=== PATIENT | male | born 1980 | race African-American/Black ===

== ENCOUNTER 2020-05-08 11:24 | Inpatient (IN) ==
[2020-05-08 13:35] LABS: Basophils % 0.5 % (0.0-0.8); Eosinophils # 0.3 10*3/uL (0.0-0.87); Eosinophils % 5.1 % (0.00-10.9); Hematocrit 40.5 VOL% (42.0-52.0); Hemoglobin 13.1 GM/DL (14.0-18.0); Immature Granulocytes % 0.4 %; Immature Granulocytes Absolute 0.02 #; Lymphocytes # 1.1 10*3/uL (1.4-4.0); Lymphocytes % 19.1 % (21.2-54.2); Mean Corpuscular HGB Conc 32.3 GM/DL (32-36); Mean Corpuscular Volume 81.8 FL (87-102); Mean Platelet Volume 9.9 FL (9.6-12.0); Monocytes % 7.2 % (1.7-12.7); Neutrophils % 67.7 % (38.7-73.9); Platelet Count 293 T/CUMM (130-400); Red Blood Count 4.95 MC/CUMM (3.8-5.5); White Blood Count 5.7 T/CUMM (4-12)
[2020-05-08 13:52] LABS: Blood, Urine Negative (Negative); Glucose,Urine (UA) Negative (Negative); Ketones,Urine Negative (Negative); Mucus,Urine Occasional /LPF (Occasional); Nitrite,Urine Negative (Negative); Protein,Urine Negative; RBC,Urine 2 /HPF (0-4); Squamous Epithelial Cell,Urine Occasional /HPF (0-10); Urine Appearance CLEAR (Clear); Urine Color Amber (Yellow); Urine Specific Gravity 1.023 (1.001-1.035); WBC,Urine 16 /HPF (0-6)
[2020-05-08 13:53] LABS: Bilirubin,Urine Moderate mg/dL (Negative)
[2020-05-08 14:16] LABS: Albumin 3.2 G/DL (3.4-5.0); Calcium 9.4 MG/DL (8.5-10.1); Osmolality,Calculated 276.5 MOS/KG (273-304); Total Protein 7.7 G/DL (6.4-8.3)
[2020-05-08] MEDS ORDERED: SODIUM CHLORIDE 0.9% 1,000 ML IV STA ×2 (14:26→15:16)
[2020-05-08 15:53] LABS: HIV Antigen/Antibody Result Nonreactive (Nonreactive); Hepatitis B Core IgM Quant 0.19 Index; Hepatitis B Surface Ag Quant < 0.10 Index; Hepatitis B Surface Ag Result Negative (Negative); Hepatitis C Virus Ab Quant 0.08 Index; Hepatitis C Virus Ab Result Negative (Negative)
[2020-05-08 16:00] LABS: Barbiturates Screen,Urine Negative (Negative); Benzodiazepines Screen,Urine Negative (Negative); Cannabinoid Screen,Urine Negative (Negative); Opiate Screen,Urine Negative (Negative); Phencyclidine Screen,Urine Negative (Negative)
[2020-05-08] MEDS ORDERED: GLUCAGON 1 MG VIAL IM PRN (16:34)
[2020-05-08] MEDS ORDERED: DEXTROSE 50% 25 GM/50 ML VIAL IV PRN (16:34)
[2020-05-08] MEDS ORDERED: MORPHINE 4 MG/1 ML VIAL IV PRN (17:11)
[2020-05-08] MEDS: SODIUM CHLORIDE 0.9% 1,000 ML IV SCH ×2 (19:30→19:50)
[2020-05-08] MEDS ORDERED: INFLUENZA VIRUS VACCINE 0.5 ML SYRINGE IM ONE (20:03)
[2020-05-09] MEDS: SODIUM CHLORIDE 0.9% 1,000 ML IV SCH ×6 (00:55→20:40)
[2020-05-09 06:05] LABS: Basophils % 0.6 % (0.0-0.8); Eosinophils # 0.3 10*3/uL (0.0-0.87); Eosinophils % 7.1 % (0.00-10.9); Hematocrit 35.9 VOL% (42.0-52.0); Hemoglobin 11.8 GM/DL (14.0-18.0); Immature Granulocytes % 0.4 %; Immature Granulocytes Absolute 0.02 #; Lymphocytes # 1.1 10*3/uL (1.4-4.0); Lymphocytes % 22.9 % (21.2-54.2); Mean Corpuscular HGB Conc 32.9 GM/DL (32-36); Mean Corpuscular Volume 79.6 FL (87-102); Monocytes % 8.6 % (1.7-12.7); Neutrophils % 60.4 % (38.7-73.9); Platelet Count 252 T/CUMM (130-400); Red Blood Count 4.51 MC/CUMM (3.8-5.5); White Blood Count 4.8 T/CUMM (4-12)
[2020-05-09 06:33] LABS: Albumin 2.5 G/DL (3.4-5.0); Bilirubin,Total 8.2 MG/DL (0.2-1.0); Calcium 8.7 MG/DL (8.5-10.1); Osmolality,Calculated 279.1 MOS/KG (273-304); Total Protein 6.1 G/DL (6.4-8.3)
[2020-05-09] MEDS: PANTOPRAZOLE 40 MG VIAL IV SCH (08:18)
[2020-05-09 11:41] LABS: Basophils % 0.5 % (0.0-0.8); Eosinophils # 0.3 10*3/uL (0.0-0.87); Eosinophils % 4.4 % (0.00-10.9); Hematocrit 35.8 VOL% (42.0-52.0); Hemoglobin 11.9 GM/DL (14.0-18.0); Immature Granulocytes % 0.5 %; Immature Granulocytes Absolute 0.03 #; Lymphocytes # 0.9 10*3/uL (1.4-4.0); Lymphocytes % 15.5 % (21.2-54.2); Mean Corpuscular HGB Conc 33.2 GM/DL (32-36); Mean Corpuscular Volume 80.8 FL (87-102); Mean Platelet Volume 10.4 FL (9.6-12.0); Monocytes % 6.2 % (1.7-12.7); Neutrophils % 72.9 % (38.7-73.9); Platelet Count 251 T/CUMM (130-400); Red Blood Count 4.43 MC/CUMM (3.8-5.5); Red Cell Distribution Width 16.8 % (9.3-17.3); White Blood Count 5.7 T/CUMM (4-12)
[2020-05-09 12:28] LABS: Albumin 2.4 G/DL (3.4-5.0); Bilirubin,Total 8.9 MG/DL (0.2-1.0); Calcium 8.4 MG/DL (8.5-10.1); Osmolality,Calculated 282.1 MOS/KG (273-304)
[2020-05-10] MEDS: SODIUM CHLORIDE 0.9% 1,000 ML IV SCH ×7 (00:40→21:20)
[2020-05-10 05:57] LABS: Basophils % 0.6 % (0.0-0.8); Eosinophils # 0.3 10*3/uL (0.0-0.87); Eosinophils % 6.6 % (0.00-10.9); Hematocrit 36.2 VOL% (42.0-52.0); Hemoglobin 11.8 GM/DL (14.0-18.0); Immature Granulocytes % 0.6 %; Immature Granulocytes Absolute 0.03 #; Lymphocytes # 1.2 10*3/uL (1.4-4.0); Lymphocytes % 25.1 % (21.2-54.2); Mean Corpuscular HGB Conc 32.6 GM/DL (32-36); Mean Corpuscular Volume 80.1 FL (87-102); Mean Platelet Volume 11.2 FL (9.6-12.0); Neutrophils % 58.1 % (38.7-73.9); Platelet Count 245 T/CUMM (130-400); Red Blood Count 4.52 MC/CUMM (3.8-5.5); Red Cell Distribution Width 16.8 % (9.3-17.3); White Blood Count 4.9 T/CUMM (4-12)
[2020-05-10 06:17] LABS: Albumin 2.2 G/DL (3.4-5.0); Calcium 8.6 MG/DL (8.5-10.1); Total Protein 5.8 G/DL (6.4-8.3)
[2020-05-10] MEDS: PANTOPRAZOLE 40 MG VIAL IV SCH (10:58)
[2020-05-11] MEDS: SODIUM CHLORIDE 0.9% 1,000 ML IV SCH ×7 (00:20→20:22)
[2020-05-11 06:04] LABS: Basophils % 0.4 % (0.0-0.8); Eosinophils # 0.2 10*3/uL (0.0-0.87); Eosinophils % 3.7 % (0.00-10.9); Hematocrit 35.3 VOL% (42.0-52.0); Hemoglobin 11.6 GM/DL (14.0-18.0); Immature Granulocytes % 0.4 %; Immature Granulocytes Absolute 0.02 #; Lymphocytes # 1.1 10*3/uL (1.4-4.0); Lymphocytes % 20.8 % (21.2-54.2); Mean Corpuscular HGB Conc 32.9 GM/DL (32-36); Mean Corpuscular Volume 79.7 FL (87-102); Mean Platelet Volume 11.1 FL (9.6-12.0); Monocytes % 10.1 % (1.7-12.7); Neutrophils % 64.6 % (38.7-73.9); Platelet Count 264 T/CUMM (130-400); Red Blood Count 4.43 MC/CUMM (3.8-5.5); Red Cell Distribution Width 16.6 % (9.3-17.3); White Blood Count 5.1 T/CUMM (4-12)
[2020-05-11 06:36] LABS: Albumin 2.3 G/DL (3.4-5.0); Bilirubin,Total 10.1 MG/DL (0.2-1.0); Osmolality,Calculated 280.1 MOS/KG (273-304); Total Protein 5.9 G/DL (6.4-8.3)
[2020-05-11 06:43] LABS: Albumin 2.3 G/DL (3.4-5.0); Bilirubin,Direct 8.08 MG/DL (0.0-0.20); Bilirubin,Indirect 2.5 MG/DL (0.0-1.0); Bilirubin,Total 10.6 MG/DL (0.2-1.0); Total Protein 5.9 G/DL (6.4-8.3)
[2020-05-11 08:38] LABS: INR 1.2; PT Patient Result 12.6 SECS (9.8-11.9)
[2020-05-11] MEDS ORDERED: INDOMETHACIN SUPP 50 MG SUPP RECTAL ONE (09:00)
[2020-05-11] MEDS: PANTOPRAZOLE 40 MG VIAL IV SCH (09:09)
[2020-05-11] MEDS: LACTATED RINGERS 1,000 ML IV SCH (10:23)
[2020-05-11] MEDS ORDERED: cefTRIAXone 1,000 MG in SYRINGE 1 EACH IV ONE ×2 (10:25→10:28)
[2020-05-11] MEDS ORDERED: fentaNYL 100 MCG/2 ML VIAL ONE (10:50)
[2020-05-11] MEDS ORDERED: MIDAZOLAM 2 MG/2 ML VIAL ONE (10:51)
[2020-05-11] MEDS ORDERED: propofoL 200 MG/20 ML VIAL IV ONE (11:40)
[2020-05-11] MEDS ORDERED: ROCURONIUM 50 MG/5 ML VIAL IV ONE (11:40)
[2020-05-11] MEDS ORDERED: ONDANSETRON 4 MG/2 ML VIAL ONE (11:40)
[2020-05-11] MEDS ORDERED: LIDOCAINE 2% 5 ML VIAL ONE (11:40)
[2020-05-11] MEDS ORDERED: SUCCINYLCHOLINE 200 MG/10 ML VIAL ONE (11:40)
[2020-05-12] MEDS: SODIUM CHLORIDE 0.9% 1,000 ML IV SCH ×4 (03:46→12:43)
[2020-05-12] MEDS: LACTATED RINGERS 1,000 ML IV SCH (07:00)
[2020-05-12 07:54] LABS: Basophils % 0.4 % (0.0-0.8); Eosinophils # 0.2 10*3/uL (0.0-0.87); Eosinophils % 5.3 % (0.00-10.9); Hematocrit 34.4 VOL% (42.0-52.0); Hemoglobin 11.4 GM/DL (14.0-18.0); Immature Granulocytes % 0.4 %; Immature Granulocytes Absolute 0.02 #; Lymphocytes # 1.1 10*3/uL (1.4-4.0); Lymphocytes % 23.3 % (21.2-54.2); Mean Corpuscular HGB Conc 33.1 GM/DL (32-36); Mean Corpuscular Volume 78.9 FL (87-102); Mean Platelet Volume 10.9 FL (9.6-12.0); Monocytes % 9.6 % (1.7-12.7); Platelet Count 248 T/CUMM (130-400); Red Blood Count 4.36 MC/CUMM (3.8-5.5); Red Cell Distribution Width 16.7 % (9.3-17.3); White Blood Count 4.5 T/CUMM (4-12)
[2020-05-12 08:41] LABS: Albumin 2.4 G/DL (3.4-5.0); Bilirubin,Direct 6.54 MG/DL (0.0-0.20); Bilirubin,Indirect 1.5 MG/DL (0.0-1.0); Total Protein 5.9 G/DL (6.4-8.3)
[2020-05-12 08:50] LABS: Albumin 2.4 G/DL (3.4-5.0); Bilirubin,Total 8.1 MG/DL (0.2-1.0); Calcium 8.9 MG/DL (8.5-10.1); Total Protein 5.9 G/DL (6.4-8.3)
[2020-05-12] MEDS: PANTOPRAZOLE 40 MG VIAL IV SCH (08:50)
[2020-05-12] MEDS ORDERED: cefTRIAXone 1,000 MG in SYRINGE 1 EACH IV SCH (09:00)
[2020-05-12 11:25] VITALS: BP 130/84
== END 2020-05-12 13:13 | disposition home or self-care (01) | DRG 439 ==
LOC: N.ED 11:24 → SUATTDRO 16:34 → N.EDINP 16:34 → N.3E 19:48
PROVIDERS: ADMIT Family Medicine; ATTEND Internal Medicine